=== PATIENT | female | born 1945 | race Caucasian/White ===

== ENCOUNTER 2021-02-24 04:47 | Day surgery (SDC) | payer BC ==
[2021-02-23 15:57] VITALS: BMI 18.0
[2021-02-24 15:10] VITALS: TEMP 98
[2021-02-24 16:02] VITALS: BP 141/87; PULSE 64
== END 2021-02-24 16:02 | disposition home or self-care (01) ==
LOC: JASU-ENDO 04:47
PROVIDERS: ATTEND Internal Medicine Gastroenterology
PROC: 0DB68ZX Excision of Stomach, Via Natural or Artificial Opening Endoscopic, Diagnostic (ICD-10-PCS; principal; 2021-02-24 13:00)
DX: R11.0 Nausea (principal); R63.4 Abnormal weight loss
CPT/HCPCS: 88305-TC; 88342-TC